=== PATIENT | male | born 1945 | race Caucasian/White ===

== ENCOUNTER 2016-11-13 05:55 | Emergency (ER) | payer MEDICARE ==
[~2016-11-13] VITALS: Ht 177.8 cm; Wt 84.1 kg
[~2016-11-13 05:55] MED LIST: ACET325T51 PO; ASCO-294 PO; BACITRA TOPICAL; CALC-243 PO; CEPH250C PO; CHOL200025 PO; FERR325T39 PO; GABA-500 PO; HYDR25TA4 PO; LACT1CAP26 PO; MELA1TAB11 PO; METO25TA6 PO; NEOMY SULF TOPICAL; OXYC5TAB72 PO; POLY17PO6 PO; POLYMYXIN B TOPICAL
[2016-11-13 05:57] VITALS: BP 169/110; PULSE 71; RESP 16; O2SAT 95
--- NOTE | 2016-11-13 06:04 | ED.REPORT ---
HPI-General Illness Date of Service Nov 13, 2016 ED Provider: Dr. Cao Pt is a 70 year old male with a hx of afib, CHF, and HTN presenting to the ED via EMS from [facility] complaining of tongue swelling left greater than right onset an hour ago. He also complains of an abrasion to his tongue, which he thinks is from biting it. He has been taking Lisinopril for the past 3 weeks. Denies SOB, difficulty breathing, or any other symptoms at this time. Medics gave Benadryl en route with some relief. Nursing Notes Stated Complaint: TONGUE SWELLING Chief Complaint: Allergic Reaction Nursing Notes Reviewed: Yes Allergies: Coded Allergies: No Known Allergies (Unverified , 11/13/16) Scheduled ([Neomy Sulf/Bacitra/Polymyxin B]) 4 APPLIC/GM OINT 1 APPLIC TOPICAL TID Ascorbate Calcium (Vitamin C) 500 Mg Tablet 500 MG PO 1200 Calcium Carbonate/Vitamin D3 (Calcium 600 + Vit D Tablet) 1 Each Tablet 1 EACH PO 0800 Cephalexin (Cephalexin) 250 Mg Capsule 250 MG PO QID Cholecalciferol (Vitamin D3) (Vitamin D3) 2,000 Unit Tablet 2,000 UNIT PO 0800 Famotidine (Pepcid) 20 Mg Tablet 20 MG PO BID Ferrous Sulfate (Iron) 325 Mg Tablet 325 MG PO 1200 Gabapentin (Gabapentin) 100 Mg Capsule 100 MG PO 0800, 1200 Gabapentin (Gabapentin) 100 Mg Capsule 200 MG PO 1730 Hydrochlorothiazide (Hydrochlorothiazide) 25 Mg Tablet 25 MG PO DAILY Lactobacillus Acidophilus (Acidophilus) 1 Each Capsule 1 EACH PO 0800 Metoprolol Tartrate (Metoprolol Tartrate) 25 Mg Tablet 12.5 MG PO 0530, 1730 Prednisone (PredniSONE) 50 Mg Tablet 50 MG PO DAILY diphenhydrAMINE HCl (Benadryl) 25 Mg Capsule 50 MG PO QID Scheduled PRN Acetaminophen (Acetaminophen) 325 Mg Tablet 650 MG PO 0800, 1200, 1730 PRN PRN For Fever Melatonin/Pyridoxine (Melatonin 3 mg Tablet) 1 Each Tablet 1 EACH PO HS PRN PRN Insomnia Polyethylene Glycol 3350 (Miralax) 17 Gm Powd.pack 17 GM PO DAILY PRN PRN For Constipation oxyCODONE (oxyCODONE) 5 Mg Tablet 15 MG PO Q4 PRN PRN For Moderate Pain General Time Seen by MD: 06:04 Chief Complaint Allergic reaction Hx Obtained From: Patient, EMS Arrived By: Ambulance Sudden in Onset?: Yes Onset Occurred: 1 - 4 hours ago Context of Onset: Medication reaction (Lisinopril) Symptom Duration: Since onset Location: : Mouth (Tongue) Quality: Painful Severity: Current: Mild Severity: Maximum: Mild Recent Healthcare: No recent doctor visit, No recent hospitalization Similar Sx Previous: No Past Medical History Past Medical History History of peptic ulcer disease 4-5 years ago. Intermittent chronic atrial fibrillation. COPD, described as mild by his report. Hypertension. Dyslipidemia. Alcoholism. Quit March 2011. Tobacco abuse. Quit in 2004. History of varicocele repair. Partial thyroidectomy in . History of lumbar fracture. History of multiple ankle surgeries bilaterally, including left ankle external fixator April 2011 following which he required an extended stay at [facility]. Chronic ankle pain with narcotic habituation. Ruptured sigmoid colon in August, Past Surgical History Colectomy Enterocolic drainage pouch Colostomy put in originally by Dr. Becker per patient. Proctectomy Family History Noncontributory Smoking History Former Smoker Social History Other Social History: Local resident Ambulatory Status Independent Review of Systems Full Review of Systems Ears / Nose / Throat: Reports: Tongue swelling Respiratory: Denies: Shortness of breath GI: Denies: Vomiting Allergy / Immune: Reports: Allergic reaction (Lisinopril) Complete sys rev & neg: except as marked. Physical Exam Vital Signs Vital Signs Date Time Temp Pulse Resp B/P Pulse Ox O2 Delivery O2 Flow Rate FiO2 11/13/16 09:53 36.4 83 16 148/54 94 Room Air 11/13/16 08:25 77 19 122/61 93 Room Air 11/13/16 05:57 71 16 169/110 95 Room Air Initial VS: Reviewed General/Constitutional: Well-developed, Well-nourished Head / Eyes: Atraumatic, Normocephalic, PERRL Respiratory: Breath sounds normal, Clear to auscultation, No respiratory distress Abdomen / GI: Soft, Non-tender, No guarding, No rebound, No distention Extremities: Vascular intact, Neuro intact, No swelling, No tenderness Skin: Warm, Dry, No cyanosis Neurologic: Alert, Oriented, Nonfocal Psychiatric: Mood/affect normal, Behavior normal, Normal thought content ENT: Atraumatic, Mucous membranes moist Angioedema left tongue and left submandibular area in neck. Cardiovascular: Heart rate NL, Regular rhythm, Heart sounds NL Heart Sounds / Murmur: Positive: Systolic murmur present.. (II/) Hypertensive Interpretation & Diagnostics Lab Results Interpretation Test 11/13/16 05:57 Hold Purple Top Tube Received (Received) Hold Blue Top Tube Received (Received) Hold [place] Top Tube Received (Received) ECG Interpretation ECG Interpretation: T wave inversions in 1 and AVL. Time: 06:20 Interpreted by: ED physician Normal ECG Interpretation: Normal rate (63), Normal sinus rhythm Re-Eval/Medical Decision Med Decision/Clinical Course GISELA inhibitor induced angioedema, responsive to IV Pepcid, IV Benadryl, IV Solu-Medrol and 2 doses of intramuscular epinephrine. Patient continues to have moderate swelling to the left side of tongue and left lateral neck however it has improved significantly. Discussed the need for admission and observation given the recurrent doses of epinephrine, patient is recurrently resistant to admission and refuses. He was signed out AGAINST MEDICAL ADVICE. Time of Eval: 06:13 Patient Status: Condition improved Re-Evaluation/Progress Note: Discussed plan for possible intubation. Pt agrees with plan. Time of Eval: 06:25 Patient Status: Condition unchanged Re-Evaluation/Progress Note: Pt reports that the swelling is not any better or worse. Time of Eval: 06:40 Patient Status: Condition unchanged Re-Evaluation/Progress Note: The tongue swelling is unchanged, but the neck swelling is increased. Time of Eval: 06:42 Patient Status: Condition improved Re-Evaluation/Progress Note: Discussed plan for intubation due to increasing swelling. Pt refuses breathing tube at this time. Time of Eval: 07:00 Patient Status: Condition improved Re-Evaluation/Progress Note: Pt speech is slightly improved after the second epinephrine dose. He feels a bit better. Time of Eval: 07:18 Patient Status: Condition improved Re-Evaluation/Progress Note: Pt feeling a bit better. Time of Eval: 07:37 Patient Status: Condition improved Re-Evaluation/Progress Note: Condition slightly improved. Pt increasingly feeling better. Neck swelling reduced. Time of Eval: 08:41 Patient Status: Condition improved Re-Evaluation/Progress Note: Pt refuses admission. He states that he needs to get back to [facility] to get his wound from a recent anus surgery properly cared for. Time of Eval: 09:15 Patient Status: Condition improved Re-Evaluation/Progress Note: Discussed plan for depart AMA. Pt understands and agrees. 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 Counseled Regarding: Diagnosis, Lab results, Need for follow-up, When/why to return to ED Discharge & Departure Primary Impression: Angioedema Encounter type: initial encounter Qualified Code: T78.3XXA - Angioneurotic edema, initial encounter Disposition: AGAINST MEDICAL ADVICE Discharge Condition All VS Reviewed: Yes Condition: Improved Patient Instructions: Angioedema (ED) Additional Instructions: You are most likely having a reaction to lisinopril. Stop lisinopril, do not take it anymore. Take prednisone, Benadryl, Pepcid as prescribed. If you develop worsening or recurrent swelling of your tongue or neck or have other concerns you should return to the ER immediately. You are leaving AGAINST MEDICAL ADVICE. Referrals: Leonard Brewer MD (PCP) Crit Care Except Billable Proc Time Spent: 75-104 minutes Services Performed: Patient management by me, Time spent at bedside, Reviewing test results Critical Care Notes: See MDM Scribe Attestation Portions of this note were transcribed by Nazanin Ohara. I, Dr. Cao personally performed the history, physical exam and medical decision-making; I reviewed and confirmed the accuracy of the information in the transcribed note. Signed by: Antonio Lopez, 11/13/2016 at 0926. copies to: Leonard Brewer MD, Timothy S DO Nov 13, 2016 06:04 NAZANIN OHARA Nov 13, 2016 06:15
[2016-11-13] MEDS ORDERED: MethylprednisoLONE Sodium Succinate 62.5 mg/mL 2 mL Inj ONE (06:05)
[2016-11-13] MEDS ORDERED: MethylprednisoLONE Sodium Succinate 62.5 mg/mL 2 mL Inj IVPUSH ONE (06:05)
[2016-11-13] MEDS ORDERED: Famotidine Inj 20 MG in IV Premix 1 EACH IV ONE (06:10)
[2016-11-13 08:25] VITALS: BP 122/61; PULSE 77; RESP 19; O2SAT 93
[2016-11-13] MEDS ORDERED: PRED50TA PO (09:24)
[2016-11-13] MEDS ORDERED: DIPH25CA6 PO (09:24)
[2016-11-13] MEDS ORDERED: FAMO20T PO (09:24)
[2016-11-13 09:53] VITALS: BP 148/54; PULSE 83; RESP 16; O2SAT 94
== END 2016-11-13 09:55 | disposition left against medical advice (07) ==
LOC: SED 05:55
DX: T78.3XXA Angioneurotic edema, initial encounter (principal); X58.XXXA Exposure to other specified factors, initial encounter; Y93.9 Activity, unspecified; Y92.9 Unspecified place or not applicable; Y99.9 Unspecified external cause status; I10 Essential (primary) hypertension; Z87.891 Personal history of nicotine dependence
CPT/HCPCS: 93005; 96372; 96374; 96375; 99285; J0171; J2930; J3490